=== PATIENT | female | born 1985 | race African-American/Black ===

== ENCOUNTER 2021-11-24 18:41 | Emergency (ER) | payer OTHER ==
[2021-11-24] MEDS ORDERED: Fentanyl 100 MCG/2 ML VIAL ONE (18:55)
[2021-11-24] MEDS ORDERED: Boostrix 0.5 ML (Tdap) VIAL ONE (18:58)
== END 2021-11-24 20:56 | disposition short-term general hospital (02) ==
LOC: ERS 18:41
DX: T23.202A Burn of second degree of left hand, unspecified site, initial encounter (principal); X10.2XXA Contact with fats and cooking oils, initial encounter
CPT/HCPCS: 90471; 90715; 96374; J3010